=== PATIENT | male | born 1935 | race Two or more races ===

== ENCOUNTER 2020-08-17 02:58 | Inpatient (IN) | payer OTHER ==
[~2020-08-17] VITALS: Ht 167.6 cm; Wt 76.5 kg
[2020-08-17 06:55] LABS: Basophils # (auto) 0 10 ^3/uL (0-0.2); Basophils % (auto) 0.5 % (0.0-2.0); Calcium 8.1 mg/dL (8.5-10.1); Chloride 94 mmol/L (98-107); Eosinophils # (auto) 0 10 ^3/uL (0-0.8); Lymphocytes # (auto) 0.7 10 ^3/uL (0.4-5.4); Lymphocytes % (auto) 17.5 % (10.0-50.0); Mean Corpuscular Hemoglobin 32.2 pg (28.0-32.0); Mean Corpuscular Hgb Conc. 34.6 g/dL (32.0-36.0); Mean Corpuscular Volume 93.2 fL (80.0-100.0); Monocytes # (auto) 0.5 10 ^3/uL (0-1.3); Monocytes % (auto) 11.8 % (0.0-12.0); Neutrophils # (auto) 2.8 10 ^3/uL (1.6-8.6); Neutrophils % (auto) 70.2 % (37.0-80.0); Nucleated Red Blood Cells % 0.3 %; Platelet Count (auto) 108 10^3/uL (140-450); Potassium 3.2 mmol/L (3.5-5.1); Red Blood Cells 5.26 10^6/uL (4.5-5.90); Red Cell Distribution Width 13.9 % (11.8-14.3); Sodium 133 mmol/L (136-145)
[2020-08-17 07:00] LABS: INR 1.08 (0.9-1.15); Partial Thromboplastin Time 30.9 sec (23.0-31.2)
[2020-08-17 07:04] LABS: Alanine Aminotransferase 22 U/L (16-61); Albumin 3.2 g/dL (3.4-5.0); Alkaline Phosphatase 102 U/L (45-117); Anion Gap 8 (5-15); Aspartate Aminotransferase 37 U/L (15-37); BUN/Creatinine Ratio 15.4; Bilirubin, Total 1.3 mg/dL (0.2-1.0); Blood Urea Nitrogen 16 mg/dL (7-18); Carbon Dioxide 31 mmol/L (21-32); GFR African American 88 mL/min; GFR Non-African American 72 mL/min; Glucose 111 mg/dL (74-106); Magnesium 2.6 mg/dL (1.6-2.6); Total Protein 7.6 g/dL (6.4-8.2)
[2020-08-17] MEDS ORDERED: POTASSIUM EFFERVESENT TAB 25 MEQ PO ONE (09:30)
[2020-08-17] MEDS ORDERED: MORPHINE SULF INJ 2 MG/ML SYRINGE 1ML IV PRN (09:30)
[2020-08-17] MEDS ORDERED: REMDESIVIR PER PHARMACY 0 ML IV SCH (09:30)
[2020-08-17] MEDS ORDERED: NITROGLYCERIN 0.4 MG SL TAB SL PRN (09:30)
[2020-08-17] MEDS ORDERED: DEXTROSE (50%) 50ML SYRG IV PRN (09:30)
[2020-08-17] MEDS ORDERED: ALBUTEROL SULF 2.5 MG/0.5ML(0.5%) NEB SOLN NEB PRN (09:30)
[2020-08-17] MEDS ORDERED: LACTULOSE 20Gm/30ML SOLN PO PRN (09:30)
[2020-08-17] MEDS ORDERED: ACETAMINOPHEN 500 MG TAB PO PRN (09:30)
[2020-08-17] MEDS ORDERED: TAMS1CAP25 PO (09:53)
[2020-08-17] MEDS ORDERED: ALPR0.254 PO (09:53)
[2020-08-17] MEDS ORDERED: HYDR25TA4 PO (09:55)
[2020-08-17] MEDS ORDERED: METO-462 PO (09:55)
[2020-08-17] MEDS ORDERED: ESCI20TA51 PO (09:59)
[2020-08-17] MEDS ORDERED: TRAZ50TA2 PO (09:59)
[2020-08-17] MEDS: BUDESONIDE (INHALATION) 180 MCG IH IN SCH ×2 (10:00→22:00)
[2020-08-17] MEDS ORDERED: [UNRECOGNIZED DRUG - CODE] MT (10:02)
[2020-08-17] MEDS ORDERED: [UNRECOGNIZED DRUG - CODE] PO (10:02)
[2020-08-17] MEDS: CHOLECALCIFEROL (VITD3) 2,000 UNIT CAP PO SCH (10:50)
[2020-08-17] MEDS: ENOXAPARIN SOD 40 MG/0.4 ML SYRINGE SC SCH (10:50)
[2020-08-17] MEDS: levoFLOXacin 500MG 100 ML IV SCH (10:50)
[2020-08-17] MEDS: ASCORBIC ACID 1,000 MG TAB PO SCH (10:50)
[2020-08-17] MEDS: DexAMETHasone SOD PHOS 10MG/1ML VIAL INJ IV SCH (10:50)
[2020-08-17] MEDS: ZINC SULFATE 220mg CAP or TAB PO SCH (10:50)
[2020-08-17] MEDS: ACCU-CHEK COMFORT CURVE STRIP VI SCH (10:57)
[2020-08-17] MEDS ORDERED: IPRATROPIUM BROM 0.5 MG/2.5ML INH SOL NEB SCH (12:00)
[2020-08-17] MEDS ORDERED: ALBUTEROL SULF 2.5 MG/0.5ML(0.5%) NEB SOLN NEB SCH (12:00)
[2020-08-17] MEDS ORDERED: REMDESIVIR 200 MG in NS 210ml LOADING DOSE ADULT IV ONE (15:00)
[2020-08-17 23:35] VITALS: BP 154/74
[2020-08-18] MEDS: ACCU-CHEK COMFORT CURVE STRIP VI SCH ×7 (00:54→22:37)
[2020-08-18] MEDS: ENOXAPARIN SOD 40 MG/0.4 ML SYRINGE SC SCH ×3 (00:55→22:37)
[2020-08-18] MEDS: traZODone HCL 50 MG TAB PO SCH ×2 (00:55→22:39)
[2020-08-18] MEDS: ALBUTEROL SULF HFA 90MCG INH 200DOSE IN PRN ×3 (01:47→22:42)
[2020-08-18 03:04] LABS: Urine Blood Negative /uL (Negative); Urine Mucus FEW (None Seen); Urine Specific Gravity 1.024 (1.001-1.035); Urine WBC 1 /hpf (0 - 3)
[2020-08-18 03:05] LABS: Urine Bacteria FEW /hpf (None Seen); Urine Hyaline Cast MANY /lpf (0 - 2)
[2020-08-18 05:00] VITALS: BP 141/87
[2020-08-18 06:23] LABS: Basophils # (auto) 0 10 ^3/uL (0-0.2); Basophils % (auto) 0.1 % (0.0-2.0); Eosinophils # (auto) 0 10 ^3/uL (0-0.8); Hematocrit 45.1 % (41.0-53.0); Hemoglobin 15.3 g/dL (13.5-17.5); Lymphocytes # (auto) 0.3 10 ^3/uL (0.4-5.4); Lymphocytes % (auto) 9.9 % (10.0-50.0); Mean Corpuscular Hemoglobin 31.6 pg (28.0-32.0); Mean Corpuscular Volume 92.9 fL (80.0-100.0); Monocytes # (auto) 0.3 10 ^3/uL (0-1.3); Monocytes % (auto) 12.3 % (0.0-12.0); Neutrophils % (auto) 77.7 % (37.0-80.0); Nucleated Red Blood Cells % 0.2 %; Platelet Count (auto) 85 10^3/uL (140-450); Red Blood Cells 4.86 10^6/uL (4.5-5.90); Red Cell Distribution Width 13.8 % (11.8-14.3); White Blood Cell 2.6 10^3/uL (4.4-10.8)
[2020-08-18 06:40] LABS: Albumin 2.7 g/dL (3.4-5.0); Calcium 8.2 mg/dL (8.5-10.1); Potassium 3.3 mmol/L (3.5-5.1)
[2020-08-18 06:45] LABS: BUN/Creatinine Ratio 23.3; Bilirubin, Total 1.2 mg/dL (0.2-1.0); Total Protein 6.8 g/dL (6.4-8.2)
[2020-08-18] MEDS: BUDESONIDE (INHALATION) 180 MCG IH IN SCH ×2 (07:22→21:14)
[2020-08-18 08:00] VITALS: BP 129/62
[2020-08-18] MEDS: DexAMETHasone SOD PHOS 10MG/1ML VIAL INJ IV SCH (09:51)
[2020-08-18] MEDS: ARTIFICIAL SALIVA MT SCH (09:51)
[2020-08-18] MEDS: levoFLOXacin 500MG 100 ML IV SCH (09:51)
[2020-08-18] MEDS: ZINC SULFATE 220mg CAP or TAB PO SCH (09:53)
[2020-08-18] MEDS: ESCITALOPRAM OXALATE 20 MG PO SCH (09:53)
[2020-08-18] MEDS: TAMSULOSIN HYDROCHLORIDE 0.4 MG CAP PO SCH (09:53)
[2020-08-18] MEDS: ASCORBIC ACID 1,000 MG TAB PO SCH (09:54)
[2020-08-18] MEDS: CHOLECALCIFEROL (VITD3) 2,000 UNIT CAP PO SCH (09:54)
[2020-08-18] MEDS: METOPROLOL TARTRATE 50 MG TAB PO SCH (09:55)
[2020-08-18 12:00] VITALS: BP 99/63
[2020-08-18] MEDS ORDERED: POTASSIUM CHL 20 Meq TABLET PO ONE (14:00)
[2020-08-18] MEDS ORDERED: MAGNESIUM OXIDE 400 MG TAB PO ONE (14:00)
[2020-08-18] MEDS ORDERED: diphenhdrAMINE HCL 50 MG/1 ML VL IV PRN (14:00)
[2020-08-18] MEDS ORDERED: MAGNESIUM SULFATE 1GM/100ML 100 ML IV SCH (14:00)
[2020-08-18] MEDS ORDERED: DEXTROSE (50%) 50ML SYRG IV PRN (14:30)
[2020-08-18] MEDS ORDERED: REMDESIVIR 100 MG in SODIUM CHL 0.9% 250 ML IV SCH ×4 (15:00)
[2020-08-18] MEDS ORDERED: REMDESIVIR 200 MG in NS 210ml LOADING DOSE ADULT IV ONE (15:00)
[2020-08-18 16:00] VITALS: BP 110/44
[2020-08-18] MEDS: InsuLIN REG 1unit/0.01ml Soln (100units/ml) SC SCH ×2 (17:00→22:56)
[2020-08-18] MEDS: MAGNESIUM SULFATE 1GM/100ML 100 ML IV SCH ×3 (17:30→18:51)
[2020-08-18 21:17] VITALS: BP 121/66
[2020-08-18] MEDS: FAMOTIDINE (10MG/ML) 2ML VL IV SCH (22:38)
[2020-08-19] VITALS (10 sets, daily range): BP systolic 104–127; BP diastolic 54–74
[2020-08-19 05:22] LABS: Basophils # (auto) 0 10 ^3/uL (0-0.2); Basophils % (auto) 0.1 % (0.0-2.0); Eosinophils # (auto) 0 10 ^3/uL (0-0.8); Hematocrit 49.4 % (41.0-53.0); Hemoglobin 16.4 g/dL (13.5-17.5); Lymphocytes # (auto) 0.8 10 ^3/uL (0.4-5.4); Lymphocytes % (auto) 6.8 % (10.0-50.0); Mean Corpuscular Hemoglobin 31.4 pg (28.0-32.0); Mean Corpuscular Hgb Conc. 33.3 g/dL (32.0-36.0); Mean Corpuscular Volume 94.4 fL (80.0-100.0); Monocytes # (auto) 0.7 10 ^3/uL (0-1.3); Monocytes % (auto) 5.9 % (0.0-12.0); Neutrophils # (auto) 9.9 10 ^3/uL (1.6-8.6); Neutrophils % (auto) 87.2 % (37.0-80.0); Nucleated Red Blood Cells % 0.1 %; Platelet Count (auto) 112 10^3/uL (140-450); Red Blood Cells 5.23 10^6/uL (4.5-5.90); Red Cell Distribution Width 13.8 % (11.8-14.3); White Blood Cell 11.3 10^3/uL (4.4-10.8)
[2020-08-19 05:40] LABS: Albumin 2.8 g/dL (3.4-5.0); Calcium 8.5 mg/dL (8.5-10.1); Magnesium 2.8 mg/dL (1.6-2.6); Potassium 3.7 mmol/L (3.5-5.1)
[2020-08-19 05:49] LABS: BUN/Creatinine Ratio 20.8; Bilirubin, Total 0.9 mg/dL (0.2-1.0); CRP High Sensitivity 3.51 mg/dL (< 0.3); Phosphorus 2.1 mg/dL (2.5-4.90)
[2020-08-19] MEDS: BUDESONIDE (INHALATION) 180 MCG IH IN SCH ×2 (06:28→21:34)
[2020-08-19] MEDS: ALBUTEROL SULF HFA 90MCG INH 200DOSE IN PRN (06:28)
[2020-08-19] MEDS: ACCU-CHEK COMFORT CURVE STRIP VI SCH ×8 (06:57→22:25)
[2020-08-19] MEDS: InsuLIN REG 1unit/0.01ml Soln (100units/ml) SC SCH ×4 (06:59→22:52)
[2020-08-19] MEDS: levoFLOXacin 500MG 100 ML IV SCH (09:55)
[2020-08-19] MEDS: ENOXAPARIN SOD 40 MG/0.4 ML SYRINGE SC SCH ×2 (09:55→22:25)
[2020-08-19] MEDS: TAMSULOSIN HYDROCHLORIDE 0.4 MG CAP PO SCH (09:56)
[2020-08-19] MEDS: METOPROLOL TARTRATE 50 MG TAB PO SCH (09:56)
[2020-08-19] MEDS: ZINC SULFATE 220mg CAP or TAB PO SCH (09:56)
[2020-08-19] MEDS: ASCORBIC ACID 1,000 MG TAB PO SCH (09:57)
[2020-08-19] MEDS: DexAMETHasone SOD PHOS 10MG/1ML VIAL INJ IV SCH (09:57)
[2020-08-19] MEDS: FAMOTIDINE (10MG/ML) 2ML VL IV SCH ×2 (09:57→22:24)
[2020-08-19] MEDS: CHOLECALCIFEROL (VITD3) 2,000 UNIT CAP PO SCH (09:57)
[2020-08-19] MEDS ORDERED: MAGNESIUM OXIDE 400 MG TAB PO SCH (10:00)
[2020-08-19] MEDS: ESCITALOPRAM OXALATE 20 MG PO SCH (10:00)
[2020-08-19] MEDS: ARTIFICIAL SALIVA MT SCH (10:00)
[2020-08-19] MEDS ORDERED: FUROSEMIDE 20 MG/2 ML VIAL IV ONE (11:15)
[2020-08-19] MEDS ORDERED: POTASSIUM PHOSPHATE 26.4 MEQ in SODIUM CHL 0.9% 100 ML IV ONE (11:15)
[2020-08-19] MEDS: REMDESIVIR 100 MG in SODIUM CHL 0.9% 250 ML IV SCH (16:46)
[2020-08-19] MEDS: traZODone HCL 50 MG TAB PO SCH (22:24)
[2020-08-19] MEDS: ALPRAZolam 0.25 MG TAB PO PRN (22:27)
[2020-08-20] MEDS: ALBUTEROL SULF HFA 90MCG INH 200DOSE IN PRN ×3 (00:12→20:23)
[2020-08-20 05:00] VITALS: BP 126/73
[2020-08-20] MEDS: ACCU-CHEK COMFORT CURVE STRIP VI SCH ×8 (06:17→22:16)
[2020-08-20] MEDS: InsuLIN REG 1unit/0.01ml Soln (100units/ml) SC SCH ×4 (07:00→22:16)
[2020-08-20] MEDS: BUDESONIDE (INHALATION) 180 MCG IH IN SCH ×2 (08:05→20:23)
[2020-08-20 09:00] VITALS: BP 140/67
[2020-08-20] MEDS: FUROSEMIDE 20 MG/2 ML VIAL IV SCH (09:28)
[2020-08-20] MEDS: levoFLOXacin 500MG 100 ML IV SCH (09:28)
[2020-08-20] MEDS: DexAMETHasone SOD PHOS 10MG/1ML VIAL INJ IV SCH (09:28)
[2020-08-20] MEDS: FAMOTIDINE (10MG/ML) 2ML VL IV SCH ×2 (09:28→22:12)
[2020-08-20] MEDS: CHOLECALCIFEROL (VITD3) 2,000 UNIT CAP PO SCH (09:29)
[2020-08-20] MEDS: ZINC SULFATE 220mg CAP or TAB PO SCH (09:29)
[2020-08-20] MEDS: METOPROLOL TARTRATE 50 MG TAB PO SCH (09:29)
[2020-08-20] MEDS: ASCORBIC ACID 1,000 MG TAB PO SCH (09:30)
[2020-08-20] MEDS: TAMSULOSIN HYDROCHLORIDE 0.4 MG CAP PO SCH (09:30)
[2020-08-20] MEDS: ESCITALOPRAM OXALATE 20 MG PO SCH (10:00)
[2020-08-20] MEDS: ARTIFICIAL SALIVA MT SCH (10:00)
[2020-08-20] MEDS: ENOXAPARIN SOD 40 MG/0.4 ML SYRINGE SC SCH ×2 (11:37→22:12)
[2020-08-20] MEDS: ALPRAZolam 0.25 MG TAB PO PRN (11:40)
[2020-08-20 15:49] VITALS: BP 122/59
[2020-08-20] MEDS: REMDESIVIR 100 MG in SODIUM CHL 0.9% 250 ML IV SCH (16:04)
[2020-08-20 17:00] VITALS: BP 125/69
[2020-08-20 22:00] VITALS: BP 139/77
[2020-08-20] MEDS: traZODone HCL 50 MG TAB PO SCH (22:12)
[2020-08-21 05:00] VITALS: BP 130/69
[2020-08-21] MEDS: BUDESONIDE (INHALATION) 180 MCG IH IN SCH ×2 (06:46→21:19)
[2020-08-21] MEDS: ALBUTEROL SULF HFA 90MCG INH 200DOSE IN PRN ×2 (06:46→21:19)
[2020-08-21] MEDS: InsuLIN REG 1unit/0.01ml Soln (100units/ml) SC SCH ×4 (07:00→22:00)
[2020-08-21] MEDS: ACCU-CHEK COMFORT CURVE STRIP VI SCH ×7 (07:01→22:00)
[2020-08-21] MEDS: FUROSEMIDE 20 MG/2 ML VIAL IV SCH (10:00)
[2020-08-21] MEDS: ARTIFICIAL SALIVA MT SCH (10:00)
[2020-08-21] MEDS: CHOLECALCIFEROL (VITD3) 2,000 UNIT CAP PO SCH (10:45)
[2020-08-21] MEDS: ENOXAPARIN SOD 40 MG/0.4 ML SYRINGE SC SCH ×2 (10:45→21:32)
[2020-08-21] MEDS: CITALOPRAM HYDROBR 20 MG TAB PO SCH (10:45)
[2020-08-21] MEDS: levoFLOXacin 500MG 100 ML IV SCH (10:45)
[2020-08-21] MEDS: ASCORBIC ACID 1,000 MG TAB PO SCH (10:45)
[2020-08-21] MEDS: FAMOTIDINE (10MG/ML) 2ML VL IV SCH (10:45)
[2020-08-21] MEDS: METOPROLOL TARTRATE 50 MG TAB PO SCH (10:45)
[2020-08-21] MEDS: DexAMETHasone SOD PHOS 10MG/1ML VIAL INJ IV SCH (10:45)
[2020-08-21] MEDS: TAMSULOSIN HYDROCHLORIDE 0.4 MG CAP PO SCH (10:45)
[2020-08-21] MEDS: MORPHINE SULF INJ 2 MG/ML SYRINGE 1ML IV PRN ×2 (10:50→15:17)
[2020-08-21] MEDS: ZINC SULFATE 220mg CAP or TAB PO SCH (16:15)
[2020-08-21] MEDS: traMADol HCL 50 MG TAB PO PRN (20:39)
[2020-08-21] MEDS: traZODone HCL 50 MG TAB PO SCH (21:31)
[2020-08-21] MEDS: REMDESIVIR 100 MG in SODIUM CHL 0.9% 250 ML IV SCH (21:33)
[2020-08-21 22:00] VITALS: BP 146/70
[2020-08-22] MEDS: FAMOTIDINE (10MG/ML) 2ML VL IV SCH ×3 (01:57→20:55)
[2020-08-22] MEDS: ACCU-CHEK COMFORT CURVE STRIP VI SCH ×9 (01:58→21:13)
[2020-08-22 05:00] VITALS: BP 143/79
[2020-08-22] MEDS: InsuLIN REG 1unit/0.01ml Soln (100units/ml) SC SCH ×4 (06:20→21:27)
[2020-08-22 07:31] LABS: Basophils # (auto) 0 10 ^3/uL (0-0.2); Basophils % (auto) 0.2 % (0.0-2.0); Eosinophils # (auto) 0 10 ^3/uL (0-0.8); Hematocrit 47.6 % (41.0-53.0); Lymphocytes # (auto) 0.7 10 ^3/uL (0.4-5.4); Lymphocytes % (auto) 11.9 % (10.0-50.0); Mean Corpuscular Hemoglobin 31.8 pg (28.0-32.0); Mean Corpuscular Hgb Conc. 33.6 g/dL (32.0-36.0); Mean Corpuscular Volume 94.6 fL (80.0-100.0); Monocytes # (auto) 0.7 10 ^3/uL (0-1.3); Monocytes % (auto) 10.9 % (0.0-12.0); Neutrophils # (auto) 4.6 10 ^3/uL (1.6-8.6); Nucleated Red Blood Cells % 0.1 %; Platelet Count (auto) 169 10^3/uL (140-450); Red Blood Cells 5.03 10^6/uL (4.5-5.90); Red Cell Distribution Width 13.7 % (11.8-14.3)
[2020-08-22 07:34] LABS: Albumin 2.8 g/dL (3.4-5.0); Magnesium 2.2 mg/dL (1.6-2.6); Potassium 3.5 mmol/L (3.5-5.1)
[2020-08-22 07:35] LABS: BUN/Creatinine Ratio 18.9
[2020-08-22 07:39] LABS: Bilirubin, Total 1.4 mg/dL (0.2-1.0); Total Protein 6.6 g/dL (6.4-8.2)
[2020-08-22] MEDS: BUDESONIDE (INHALATION) 180 MCG IH IN SCH ×2 (07:56→21:33)
[2020-08-22] MEDS: ALBUTEROL SULF HFA 90MCG INH 200DOSE IN PRN ×2 (07:56→21:33)
[2020-08-22] MEDS: ARTIFICIAL SALIVA MT SCH (10:00)
[2020-08-22] MEDS: DexAMETHasone SOD PHOS 10MG/1ML VIAL INJ IV SCH (11:26)
[2020-08-22] MEDS: FUROSEMIDE 20 MG/2 ML VIAL IV SCH (11:26)
[2020-08-22] MEDS: ZINC SULFATE 220mg CAP or TAB PO SCH (11:27)
[2020-08-22] MEDS: CITALOPRAM HYDROBR 20 MG TAB PO SCH (11:28)
[2020-08-22] MEDS: TAMSULOSIN HYDROCHLORIDE 0.4 MG CAP PO SCH (11:28)
[2020-08-22] MEDS: METOPROLOL TARTRATE 50 MG TAB PO SCH (11:28)
[2020-08-22] MEDS: ENOXAPARIN SOD 40 MG/0.4 ML SYRINGE SC SCH ×2 (11:30→20:55)
[2020-08-22] MEDS: ASCORBIC ACID 1,000 MG TAB PO SCH (11:30)
[2020-08-22] MEDS: CHOLECALCIFEROL (VITD3) 2,000 UNIT CAP PO SCH (11:30)
[2020-08-22] MEDS: levoFLOXacin 500MG 100 ML IV SCH (11:33)
[2020-08-22] MEDS: traMADol HCL 50 MG TAB PO PRN (13:28)
[2020-08-22] MEDS ORDERED: POTASSIUM CHL 20 Meq TABLET PO ONE (15:45)
[2020-08-22] MEDS: ONDANSETRON HCL 4 MG/2 ML VIAL IV PRN (18:08)
[2020-08-22] MEDS: MORPHINE SULF INJ 2 MG/ML SYRINGE 1ML IV PRN (18:08)
[2020-08-22] MEDS: REMDESIVIR 100 MG in SODIUM CHL 0.9% 250 ML IV SCH (20:56)
[2020-08-22] MEDS: traZODone HCL 50 MG TAB PO SCH (21:07)
[2020-08-22 22:00] VITALS: BP 128/69
[2020-08-23 05:00] VITALS: BP 127/69
[2020-08-23] MEDS: InsuLIN REG 1unit/0.01ml Soln (100units/ml) SC SCH ×4 (06:24→21:28)
[2020-08-23] MEDS: ACCU-CHEK COMFORT CURVE STRIP VI SCH ×8 (06:24→21:20)
[2020-08-23 08:00] VITALS: BP 126/65
[2020-08-23] MEDS: BUDESONIDE (INHALATION) 180 MCG IH IN SCH ×2 (10:00→22:58)
[2020-08-23] MEDS: ARTIFICIAL SALIVA MT SCH (10:00)
[2020-08-23] MEDS: FAMOTIDINE (10MG/ML) 2ML VL IV SCH ×2 (10:38→21:19)
[2020-08-23] MEDS: FUROSEMIDE 20 MG/2 ML VIAL IV SCH (10:39)
[2020-08-23] MEDS: levoFLOXacin 500MG 100 ML IV SCH (10:39)
[2020-08-23] MEDS: DexAMETHasone SOD PHOS 10MG/1ML VIAL INJ IV SCH (10:39)
[2020-08-23] MEDS: ZINC SULFATE 220mg CAP or TAB PO SCH (10:40)
[2020-08-23] MEDS: CITALOPRAM HYDROBR 20 MG TAB PO SCH (10:41)
[2020-08-23] MEDS: TAMSULOSIN HYDROCHLORIDE 0.4 MG CAP PO SCH (10:41)
[2020-08-23] MEDS: METOPROLOL TARTRATE 50 MG TAB PO SCH (10:42)
[2020-08-23] MEDS: ASCORBIC ACID 1,000 MG TAB PO SCH (10:42)
[2020-08-23] MEDS: CHOLECALCIFEROL (VITD3) 2,000 UNIT CAP PO SCH (10:43)
[2020-08-23] MEDS: ENOXAPARIN SOD 40 MG/0.4 ML SYRINGE SC SCH ×2 (10:44→21:19)
[2020-08-23 12:00] VITALS: BP 133/66
[2020-08-23] MEDS: ALBUTEROL SULF HFA 90MCG INH 200DOSE IN PRN ×2 (14:09→22:57)
[2020-08-23] MEDS: MORPHINE SULF INJ 2 MG/ML SYRINGE 1ML IV PRN (15:15)
[2020-08-23] MEDS: ONDANSETRON HCL 4 MG/2 ML VIAL IV PRN (15:15)
[2020-08-23 17:00] VITALS: BP 117/69
[2020-08-23] MEDS: traZODone HCL 50 MG TAB PO SCH (21:20)
[2020-08-23 22:00] VITALS: BP 150/63
[2020-08-24 05:00] VITALS: BP 123/70
[2020-08-24] MEDS: InsuLIN REG 1unit/0.01ml Soln (100units/ml) SC SCH ×4 (07:00→22:00)
[2020-08-24] MEDS: ACCU-CHEK COMFORT CURVE STRIP VI SCH ×8 (07:01→22:34)
[2020-08-24] MEDS: BUDESONIDE (INHALATION) 180 MCG IH IN SCH ×2 (07:31→19:43)
[2020-08-24] MEDS: ALBUTEROL SULF HFA 90MCG INH 200DOSE IN PRN ×2 (07:31→19:43)
[2020-08-24 09:00] VITALS: BP 124/68
[2020-08-24] MEDS: ARTIFICIAL SALIVA MT SCH (10:00)
[2020-08-24] MEDS: levoFLOXacin 500MG 100 ML IV SCH (10:46)
[2020-08-24] MEDS: DexAMETHasone SOD PHOS 10MG/1ML VIAL INJ IV SCH (10:47)
[2020-08-24] MEDS: ENOXAPARIN SOD 40 MG/0.4 ML SYRINGE SC SCH ×2 (10:47→22:11)
[2020-08-24] MEDS: CITALOPRAM HYDROBR 20 MG TAB PO SCH (10:47)
[2020-08-24] MEDS: ASCORBIC ACID 1,000 MG TAB PO SCH (10:48)
[2020-08-24] MEDS: ZINC SULFATE 220mg CAP or TAB PO SCH (10:48)
[2020-08-24] MEDS: TAMSULOSIN HYDROCHLORIDE 0.4 MG CAP PO SCH (10:48)
[2020-08-24] MEDS: METOPROLOL TARTRATE 50 MG TAB PO SCH (10:48)
[2020-08-24] MEDS: FAMOTIDINE (10MG/ML) 2ML VL IV SCH ×2 (10:49→22:11)
[2020-08-24] MEDS: FUROSEMIDE 20 MG/2 ML VIAL IV SCH (10:49)
[2020-08-24] MEDS: CHOLECALCIFEROL (VITD3) 2,000 UNIT CAP PO SCH (10:50)
[2020-08-24 12:50] VITALS: BP 138/79
[2020-08-24 16:40] VITALS: BP 123/68
[2020-08-24 22:00] VITALS: BP 130/66
[2020-08-24] MEDS: traZODone HCL 50 MG TAB PO SCH (22:11)
[2020-08-25 05:00] VITALS: BP 118/63
[2020-08-25] MEDS: ACCU-CHEK COMFORT CURVE STRIP VI SCH ×8 (06:29→20:31)
[2020-08-25] MEDS: InsuLIN REG 1unit/0.01ml Soln (100units/ml) SC SCH ×4 (06:29→21:16)
[2020-08-25 08:51] VITALS: BP 112/54
[2020-08-25 09:09] LABS: Basophils # (auto) 0.2 10 ^3/uL (0-0.2); Basophils % (auto) 3.3 % (0.0-2.0); Eosinophils # (auto) 0 10 ^3/uL (0-0.8); Eosinophils % (auto) 0.6 % (0.0-7.0); Hematocrit 46.7 % (41.0-53.0); Hemoglobin 15.6 g/dL (13.5-17.5); Lymphocytes # (auto) 0.6 10 ^3/uL (0.4-5.4); Lymphocytes % (auto) 12.8 % (10.0-50.0); Mean Corpuscular Hemoglobin 31.4 pg (28.0-32.0); Mean Corpuscular Hgb Conc. 33.3 g/dL (32.0-36.0); Mean Corpuscular Volume 94.3 fL (80.0-100.0); Monocytes # (auto) 0.6 10 ^3/uL (0-1.3); Monocytes % (auto) 12.1 % (0.0-12.0); Neutrophils # (auto) 3.6 10 ^3/uL (1.6-8.6); Neutrophils % (auto) 71.2 % (37.0-80.0); Nucleated Red Blood Cells % 0.1 %; Platelet Count (auto) 206 10^3/uL (140-450); Red Blood Cells 4.96 10^6/uL (4.5-5.90); Red Cell Distribution Width 13.7 % (11.8-14.3)
[2020-08-25 09:29] LABS: Albumin 2.5 g/dL (3.4-5.0); Calcium 8.5 mg/dL (8.5-10.1); Magnesium 2.5 mg/dL (1.6-2.6); Potassium 3.3 mmol/L (3.5-5.1)
[2020-08-25 09:34] LABS: BUN/Creatinine Ratio 33.7; Bilirubin, Total 1.8 mg/dL (0.2-1.0); Total Protein 6.2 g/dL (6.4-8.2)
[2020-08-25] MEDS: ENOXAPARIN SOD 40 MG/0.4 ML SYRINGE SC SCH ×2 (09:49→20:30)
[2020-08-25] MEDS: ZINC SULFATE 220mg CAP or TAB PO SCH (09:49)
[2020-08-25] MEDS: CITALOPRAM HYDROBR 20 MG TAB PO SCH (09:49)
[2020-08-25] MEDS: CHOLECALCIFEROL (VITD3) 2,000 UNIT CAP PO SCH (09:49)
[2020-08-25] MEDS: ASCORBIC ACID 1,000 MG TAB PO SCH (09:49)
[2020-08-25] MEDS: TAMSULOSIN HYDROCHLORIDE 0.4 MG CAP PO SCH (09:50)
[2020-08-25] MEDS: FAMOTIDINE (10MG/ML) 2ML VL IV SCH ×2 (09:50→20:31)
[2020-08-25] MEDS: DexAMETHasone SOD PHOS 10MG/1ML VIAL INJ IV SCH (09:50)
[2020-08-25] MEDS: FUROSEMIDE 20 MG/2 ML VIAL IV SCH (10:00)
[2020-08-25] MEDS: METOPROLOL TARTRATE 50 MG TAB PO SCH (10:00)
[2020-08-25] MEDS: ARTIFICIAL SALIVA MT SCH (10:00)
[2020-08-25] MEDS: BUDESONIDE (INHALATION) 180 MCG IH IN SCH ×2 (10:00→22:28)
[2020-08-25] MEDS: ALBUTEROL SULF HFA 90MCG INH 200DOSE IN PRN ×2 (10:41→22:28)
[2020-08-25] MEDS ORDERED: POTASSIUM CHL 20 Meq TABLET PO ONE (12:45)
[2020-08-25 12:48] VITALS: BP 137/62
[2020-08-25 17:11] VITALS: BP 118/68
[2020-08-25] MEDS: traZODone HCL 50 MG TAB PO SCH (20:30)
[2020-08-25] MEDS: traMADol HCL 50 MG TAB PO PRN (20:30)
[2020-08-25 22:26] VITALS: BP 125/67
[2020-08-26 05:51] VITALS: BP 124/65
[2020-08-26] MEDS: ACCU-CHEK COMFORT CURVE STRIP VI SCH ×8 (06:46→22:00)
[2020-08-26] MEDS: InsuLIN REG 1unit/0.01ml Soln (100units/ml) SC SCH ×4 (06:47→22:43)
[2020-08-26 09:00] VITALS: BP 120/77
[2020-08-26] MEDS: FUROSEMIDE 20 MG/2 ML VIAL IV SCH (09:36)
[2020-08-26] MEDS: FAMOTIDINE (10MG/ML) 2ML VL IV SCH ×2 (09:36→22:41)
[2020-08-26] MEDS: DexAMETHasone SOD PHOS 10MG/1ML VIAL INJ IV SCH (09:36)
[2020-08-26] MEDS: TAMSULOSIN HYDROCHLORIDE 0.4 MG CAP PO SCH (09:37)
[2020-08-26] MEDS: CITALOPRAM HYDROBR 20 MG TAB PO SCH (09:37)
[2020-08-26] MEDS: ZINC SULFATE 220mg CAP or TAB PO SCH (09:37)
[2020-08-26] MEDS: ARTIFICIAL SALIVA MT SCH (09:37)
[2020-08-26] MEDS: METOPROLOL TARTRATE 50 MG TAB PO SCH (09:38)
[2020-08-26] MEDS: CHOLECALCIFEROL (VITD3) 2,000 UNIT CAP PO SCH (09:38)
[2020-08-26] MEDS: ASCORBIC ACID 1,000 MG TAB PO SCH (09:38)
[2020-08-26] MEDS: BUDESONIDE (INHALATION) 180 MCG IH IN SCH ×2 (10:00→20:34)
[2020-08-26] MEDS: ENOXAPARIN SOD 40 MG/0.4 ML SYRINGE SC SCH ×2 (10:40→22:44)
[2020-08-26 13:03] VITALS: BP 135/73
[2020-08-26 17:07] VITALS: BP 124/76
[2020-08-26] MEDS: ALBUTEROL SULF HFA 90MCG INH 200DOSE IN PRN (20:34)
[2020-08-26 22:00] VITALS: BP 125/63
[2020-08-26] MEDS: traZODone HCL 50 MG TAB PO SCH (22:41)
[2020-08-27] VITALS (7 sets, daily range): BP systolic 123–136; BP diastolic 62–75
[2020-08-27] MEDS: InsuLIN REG 1unit/0.01ml Soln (100units/ml) SC SCH ×4 (06:39→21:41)
[2020-08-27] MEDS: ACCU-CHEK COMFORT CURVE STRIP VI SCH ×8 (06:39→21:36)
[2020-08-27] MEDS: BUDESONIDE (INHALATION) 180 MCG IH IN SCH ×2 (06:55→19:05)
[2020-08-27] MEDS: ALBUTEROL SULF HFA 90MCG INH 200DOSE IN PRN (06:55)
[2020-08-27] MEDS: ARTIFICIAL SALIVA MT SCH (10:00)
[2020-08-27] MEDS: FAMOTIDINE (10MG/ML) 2ML VL IV SCH ×2 (10:15→21:35)
[2020-08-27] MEDS: FUROSEMIDE 20 MG/2 ML VIAL IV SCH (10:15)
[2020-08-27] MEDS: DexAMETHasone SOD PHOS 10MG/1ML VIAL INJ IV SCH (10:15)
[2020-08-27] MEDS: ZINC SULFATE 220mg CAP or TAB PO SCH (10:16)
[2020-08-27] MEDS: TAMSULOSIN HYDROCHLORIDE 0.4 MG CAP PO SCH (10:16)
[2020-08-27] MEDS: CITALOPRAM HYDROBR 20 MG TAB PO SCH (10:16)
[2020-08-27] MEDS: ASCORBIC ACID 1,000 MG TAB PO SCH (10:17)
[2020-08-27] MEDS: METOPROLOL TARTRATE 50 MG TAB PO SCH (10:17)
[2020-08-27] MEDS: CHOLECALCIFEROL (VITD3) 2,000 UNIT CAP PO SCH (10:17)
[2020-08-27] MEDS: ENOXAPARIN SOD 40 MG/0.4 ML SYRINGE SC SCH ×2 (10:17→21:36)
[2020-08-27] MEDS: traZODone HCL 50 MG TAB PO SCH (21:35)
[2020-08-28] MEDS: ALBUTEROL SULF HFA 90MCG INH 200DOSE IN PRN ×2 (02:16→20:40)
[2020-08-28 05:00] VITALS: BP 129/68
[2020-08-28] MEDS: InsuLIN REG 1unit/0.01ml Soln (100units/ml) SC SCH ×4 (05:56→21:31)
[2020-08-28] MEDS: ACCU-CHEK COMFORT CURVE STRIP VI SCH ×8 (05:57→21:31)
[2020-08-28 06:48] LABS: Basophils # (auto) 0 10 ^3/uL (0-0.2); Basophils % (auto) 0.1 % (0.0-2.0); Eosinophils # (auto) 0 10 ^3/uL (0-0.8); Hematocrit 44.6 % (41.0-53.0); Lymphocytes # (auto) 0.5 10 ^3/uL (0.4-5.4); Lymphocytes % (auto) 5.9 % (10.0-50.0); Mean Corpuscular Hemoglobin 32.1 pg (28.0-32.0); Mean Corpuscular Hgb Conc. 33.6 g/dL (32.0-36.0); Mean Corpuscular Volume 95.4 fL (80.0-100.0); Monocytes # (auto) 0.6 10 ^3/uL (0-1.3); Monocytes % (auto) 6.4 % (0.0-12.0); Neutrophils # (auto) 7.6 10 ^3/uL (1.6-8.6); Neutrophils % (auto) 87.6 % (37.0-80.0); Platelet Count (auto) 163 10^3/uL (140-450); Red Blood Cells 4.67 10^6/uL (4.5-5.90); Red Cell Distribution Width 13.7 % (11.8-14.3); White Blood Cell 8.7 10^3/uL (4.4-10.8)
[2020-08-28 07:20] LABS: Potassium 3.7 mmol/L (3.5-5.1)
[2020-08-28 07:26] LABS: Albumin 2.3 g/dL (3.4-5.0); BUN/Creatinine Ratio 36.6; Bilirubin, Total 1.6 mg/dL (0.2-1.0); Calcium 8.6 mg/dL (8.5-10.1); Total Protein 5.8 g/dL (6.4-8.2)
[2020-08-28] MEDS: METOPROLOL TARTRATE 50 MG TAB PO SCH (10:00)
[2020-08-28] MEDS: ARTIFICIAL SALIVA MT SCH (10:00)
[2020-08-28] MEDS: BUDESONIDE (INHALATION) 180 MCG IH IN SCH ×2 (10:00→22:00)
[2020-08-28] MEDS: DexAMETHasone SOD PHOS 10MG/1ML VIAL INJ IV SCH (10:40)
[2020-08-28] MEDS: FUROSEMIDE 20 MG/2 ML VIAL IV SCH (10:42)
[2020-08-28] MEDS: FAMOTIDINE (10MG/ML) 2ML VL IV SCH ×2 (10:42→21:26)
[2020-08-28] MEDS: CITALOPRAM HYDROBR 20 MG TAB PO SCH (10:43)
[2020-08-28] MEDS: TAMSULOSIN HYDROCHLORIDE 0.4 MG CAP PO SCH (10:43)
[2020-08-28] MEDS: ZINC SULFATE 220mg CAP or TAB PO SCH (10:43)
[2020-08-28] MEDS: CHOLECALCIFEROL (VITD3) 2,000 UNIT CAP PO SCH (10:45)
[2020-08-28] MEDS: ASCORBIC ACID 1,000 MG TAB PO SCH (10:45)
[2020-08-28] MEDS: ENOXAPARIN SOD 40 MG/0.4 ML SYRINGE SC SCH ×2 (10:46→21:28)
[2020-08-28 13:00] VITALS: BP 118/68
[2020-08-28 17:00] VITALS: BP 110/66
[2020-08-28] MEDS: traMADol HCL 50 MG TAB PO PRN (20:12)
[2020-08-28] MEDS: traZODone HCL 50 MG TAB PO SCH (21:27)
[2020-08-28 22:59] VITALS: BP 112/70
[2020-08-29 05:09] VITALS: BP 130/64
[2020-08-29] MEDS: ACCU-CHEK COMFORT CURVE STRIP VI SCH ×8 (06:12→21:33)
[2020-08-29] MEDS: InsuLIN REG 1unit/0.01ml Soln (100units/ml) SC SCH ×4 (06:12→21:40)
[2020-08-29 08:23] VITALS: BP 126/69
[2020-08-29 09:00] VITALS: BP 126/69
[2020-08-29] MEDS: DexAMETHasone SOD PHOS 10MG/1ML VIAL INJ IV SCH (09:43)
[2020-08-29] MEDS: FUROSEMIDE 20 MG/2 ML VIAL IV SCH (09:44)
[2020-08-29] MEDS: FAMOTIDINE (10MG/ML) 2ML VL IV SCH ×2 (09:44→21:29)
[2020-08-29] MEDS: ARTIFICIAL SALIVA MT SCH (09:44)
[2020-08-29] MEDS: TAMSULOSIN HYDROCHLORIDE 0.4 MG CAP PO SCH (09:45)
[2020-08-29] MEDS: ZINC SULFATE 220mg CAP or TAB PO SCH (09:46)
[2020-08-29] MEDS: CITALOPRAM HYDROBR 20 MG TAB PO SCH (09:46)
[2020-08-29] MEDS: METOPROLOL SUCCINATE XL 50 MG TAB PO SCH (09:47)
[2020-08-29] MEDS: ASCORBIC ACID 1,000 MG TAB PO SCH (09:49)
[2020-08-29] MEDS: CHOLECALCIFEROL (VITD3) 2,000 UNIT CAP PO SCH (09:49)
[2020-08-29] MEDS: ENOXAPARIN SOD 40 MG/0.4 ML SYRINGE SC SCH ×2 (09:49→21:30)
[2020-08-29] MEDS: BUDESONIDE (INHALATION) 180 MCG IH IN SCH ×3 (10:00→23:35)
[2020-08-29] MEDS: traZODone HCL 50 MG TAB PO SCH (21:29)
[2020-08-30] MEDS: ALBUTEROL SULF HFA 90MCG INH 200DOSE IN PRN ×3 (01:33→19:42)
[2020-08-30] MEDS: ACCU-CHEK COMFORT CURVE STRIP VI SCH ×8 (06:31→22:22)
[2020-08-30] MEDS: InsuLIN REG 1unit/0.01ml Soln (100units/ml) SC SCH ×4 (06:31→22:27)
[2020-08-30] MEDS: BUDESONIDE (INHALATION) 180 MCG IH IN SCH ×2 (07:31→19:10)
[2020-08-30 09:00] VITALS: BP 135/60
[2020-08-30] MEDS: TAMSULOSIN HYDROCHLORIDE 0.4 MG CAP PO SCH (09:16)
[2020-08-30] MEDS: CITALOPRAM HYDROBR 20 MG TAB PO SCH (09:16)
[2020-08-30] MEDS: METOPROLOL SUCCINATE XL 50 MG TAB PO SCH (09:16)
[2020-08-30] MEDS: DexAMETHasone SOD PHOS 10MG/1ML VIAL INJ IV SCH (09:16)
[2020-08-30] MEDS: CHOLECALCIFEROL (VITD3) 2,000 UNIT CAP PO SCH (09:17)
[2020-08-30] MEDS: ASCORBIC ACID 1,000 MG TAB PO SCH (09:17)
[2020-08-30] MEDS: ENOXAPARIN SOD 40 MG/0.4 ML SYRINGE SC SCH ×2 (09:17→22:20)
[2020-08-30] MEDS: ARTIFICIAL SALIVA MT SCH (09:18)
[2020-08-30] MEDS: FAMOTIDINE (10MG/ML) 2ML VL IV SCH ×2 (09:18→22:19)
[2020-08-30] MEDS: FUROSEMIDE 20 MG/2 ML VIAL IV SCH (09:18)
[2020-08-30] MEDS: ZINC SULFATE 220mg CAP or TAB PO SCH (09:18)
[2020-08-30 13:00] VITALS: BP 114/72
[2020-08-30 16:00] VITALS: BP 131/65
[2020-08-30 20:00] VITALS: BP 116/61
[2020-08-30] MEDS: traZODone HCL 50 MG TAB PO SCH (22:19)
[2020-08-31] VITALS: BP 116/61
[2020-08-31] MEDS: ACCU-CHEK COMFORT CURVE STRIP VI SCH ×8 (06:42→22:12)
[2020-08-31] MEDS: InsuLIN REG 1unit/0.01ml Soln (100units/ml) SC SCH ×4 (06:42→22:15)
[2020-08-31 06:55] LABS: Basophils # (auto) 0 10 ^3/uL (0-0.2); Basophils % (auto) 0.2 % (0.0-2.0); Eosinophils # (auto) 0 10 ^3/uL (0-0.8); Eosinophils % (auto) 0.1 % (0.0-7.0); Hematocrit 43.4 % (41.0-53.0); Hemoglobin 14.8 g/dL (13.5-17.5); Lymphocytes # (auto) 0.6 10 ^3/uL (0.4-5.4); Lymphocytes % (auto) 6.7 % (10.0-50.0); Mean Corpuscular Hemoglobin 32.2 pg (28.0-32.0); Mean Corpuscular Hgb Conc. 34.1 g/dL (32.0-36.0); Mean Corpuscular Volume 94.5 fL (80.0-100.0); Monocytes # (auto) 0.8 10 ^3/uL (0-1.3); Monocytes % (auto) 8.9 % (0.0-12.0); Neutrophils # (auto) 7.5 10 ^3/uL (1.6-8.6); Neutrophils % (auto) 84.1 % (37.0-80.0); Nucleated Red Blood Cells % 0.1 %; Platelet Count (auto) 139 10^3/uL (140-450); Red Blood Cells 4.59 10^6/uL (4.5-5.90); Red Cell Distribution Width 13.7 % (11.8-14.3)
[2020-08-31 07:12] LABS: Potassium 4.1 mmol/L (3.5-5.1)
[2020-08-31 07:45] LABS: Albumin 2.2 g/dL (3.4-5.0); Bilirubin, Total 1.3 mg/dL (0.2-1.0); Calcium 8.3 mg/dL (8.5-10.1); Total Protein 5.7 g/dL (6.4-8.2)
[2020-08-31 08:00] VITALS: BP 128/56
[2020-08-31] MEDS: DexAMETHasone SOD PHOS 10MG/1ML VIAL INJ IV SCH (09:20)
[2020-08-31] MEDS: TAMSULOSIN HYDROCHLORIDE 0.4 MG CAP PO SCH (09:21)
[2020-08-31] MEDS: ZINC SULFATE 220mg CAP or TAB PO SCH (09:21)
[2020-08-31] MEDS: ENOXAPARIN SOD 40 MG/0.4 ML SYRINGE SC SCH ×2 (09:21→22:12)
[2020-08-31] MEDS: CITALOPRAM HYDROBR 20 MG TAB PO SCH (09:21)
[2020-08-31] MEDS: METOPROLOL SUCCINATE XL 50 MG TAB PO SCH (09:21)
[2020-08-31] MEDS: ASCORBIC ACID 1,000 MG TAB PO SCH (09:22)
[2020-08-31] MEDS: CHOLECALCIFEROL (VITD3) 2,000 UNIT CAP PO SCH (09:22)
[2020-08-31] MEDS: FAMOTIDINE (10MG/ML) 2ML VL IV SCH ×2 (09:22→22:11)
[2020-08-31] MEDS: ARTIFICIAL SALIVA MT SCH (09:22)
[2020-08-31] MEDS: FUROSEMIDE 20 MG/2 ML VIAL IV SCH (09:23)
[2020-08-31] MEDS: BUDESONIDE (INHALATION) 180 MCG IH IN SCH ×2 (09:51→22:00)
[2020-08-31] MEDS: ALBUTEROL SULF HFA 90MCG INH 200DOSE IN PRN (09:51)
[2020-08-31 16:00] VITALS: BP 111/58
[2020-08-31 20:00] VITALS: BP 128/64
[2020-08-31 22:00] VITALS: BP 127/77
[2020-08-31] MEDS: traZODone HCL 50 MG TAB PO SCH (22:11)
[2020-09-01] MEDS: ACCU-CHEK COMFORT CURVE STRIP VI SCH ×7 (06:26→22:00)
[2020-09-01] MEDS: InsuLIN REG 1unit/0.01ml Soln (100units/ml) SC SCH ×4 (06:26→22:00)
[2020-09-01 08:00] VITALS: BP 137/70
[2020-09-01] MEDS: ARTIFICIAL SALIVA MT SCH (10:00)
[2020-09-01] MEDS: FAMOTIDINE (10MG/ML) 2ML VL IV SCH ×2 (10:43→22:00)
[2020-09-01] MEDS: DexAMETHasone SOD PHOS 10MG/1ML VIAL INJ IV SCH (10:43)
[2020-09-01] MEDS: ENOXAPARIN SOD 40 MG/0.4 ML SYRINGE SC SCH ×2 (10:43→22:33)
[2020-09-01] MEDS: CITALOPRAM HYDROBR 20 MG TAB PO SCH (10:44)
[2020-09-01] MEDS: ASCORBIC ACID 1,000 MG TAB PO SCH (10:45)
[2020-09-01] MEDS: TAMSULOSIN HYDROCHLORIDE 0.4 MG CAP PO SCH (10:45)
[2020-09-01] MEDS: FUROSEMIDE 20 MG/2 ML VIAL IV SCH (10:46)
[2020-09-01] MEDS: ZINC SULFATE 220mg CAP or TAB PO SCH (10:46)
[2020-09-01] MEDS: BUDESONIDE (INHALATION) 180 MCG IH IN SCH ×3 (10:48→22:00)
[2020-09-01] MEDS: METOPROLOL SUCCINATE XL 50 MG TAB PO SCH (10:50)
[2020-09-01] MEDS: CHOLECALCIFEROL (VITD3) 2,000 UNIT CAP PO SCH (11:02)
[2020-09-01 16:00] VITALS: BP 122/67
[2020-09-01 20:00] VITALS: BP 101/61
[2020-09-01 22:00] VITALS: BP 101/61
[2020-09-01] MEDS: traZODone HCL 50 MG TAB PO SCH (22:32)
[2020-09-01] MEDS: traMADol HCL 50 MG TAB PO PRN (22:32)
[2020-09-02] MEDS: InsuLIN REG 1unit/0.01ml Soln (100units/ml) SC SCH ×4 (05:55→22:05)
[2020-09-02] MEDS: ACCU-CHEK COMFORT CURVE STRIP VI SCH ×4 (05:55→21:58)
[2020-09-02 08:00] VITALS: BP 125/65
[2020-09-02] MEDS: ARTIFICIAL SALIVA MT SCH (10:00)
[2020-09-02] MEDS: ASCORBIC ACID 1,000 MG TAB PO SCH (10:00)
[2020-09-02] MEDS: CHOLECALCIFEROL (VITD3) 2,000 UNIT CAP PO SCH (10:00)
[2020-09-02] MEDS: ZINC SULFATE 220mg CAP or TAB PO SCH (10:42)
[2020-09-02] MEDS: METOPROLOL SUCCINATE XL 50 MG TAB PO SCH (10:43)
[2020-09-02] MEDS: FUROSEMIDE 20 MG/2 ML VIAL IV SCH (10:45)
[2020-09-02] MEDS: DexAMETHasone SOD PHOS 10MG/1ML VIAL INJ IV SCH (10:45)
[2020-09-02] MEDS: TAMSULOSIN HYDROCHLORIDE 0.4 MG CAP PO SCH (10:46)
[2020-09-02] MEDS: CITALOPRAM HYDROBR 20 MG TAB PO SCH (10:48)
[2020-09-02] MEDS: ENOXAPARIN SOD 40 MG/0.4 ML SYRINGE SC SCH ×2 (10:48→21:58)
[2020-09-02] MEDS: BUDESONIDE (INHALATION) 180 MCG IH IN SCH (10:49)
[2020-09-02 16:16] VITALS: BP 112/54
[2020-09-02] MEDS: traZODone HCL 50 MG TAB PO SCH (21:58)
[2020-09-03 00:24] VITALS: BP 102/94
[2020-09-03] MEDS: ACCU-CHEK COMFORT CURVE STRIP VI SCH ×4 (06:10→21:21)
[2020-09-03] MEDS: InsuLIN REG 1unit/0.01ml Soln (100units/ml) SC SCH ×4 (06:11→21:21)
[2020-09-03 08:00] VITALS: BP 119/64
[2020-09-03 08:10] VITALS: BP 125/65
[2020-09-03] MEDS: ENOXAPARIN SOD 40 MG/0.4 ML SYRINGE SC SCH ×2 (10:56→21:21)
[2020-09-03] MEDS: BUDESONIDE (INHALATION) 180 MCG IH IN SCH ×2 (10:56→19:26)
[2020-09-03] MEDS: DexAMETHasone SOD PHOS 10MG/1ML VIAL INJ IV SCH (10:57)
[2020-09-03] MEDS: FUROSEMIDE 20 MG/2 ML VIAL IV SCH (10:57)
[2020-09-03] MEDS: CITALOPRAM HYDROBR 20 MG TAB PO SCH (10:58)
[2020-09-03] MEDS: METOPROLOL SUCCINATE XL 50 MG TAB PO SCH (10:58)
[2020-09-03] MEDS: ARTIFICIAL SALIVA MT SCH (10:59)
[2020-09-03] MEDS: ZINC SULFATE 220mg CAP or TAB PO SCH (10:59)
[2020-09-03] MEDS: TAMSULOSIN HYDROCHLORIDE 0.4 MG CAP PO SCH (10:59)
[2020-09-03] MEDS: ASCORBIC ACID 1,000 MG TAB PO SCH (11:00)
[2020-09-03] MEDS: CHOLECALCIFEROL (VITD3) 2,000 UNIT CAP PO SCH (11:00)
[2020-09-03 16:00] VITALS: BP 145/79
[2020-09-03] MEDS: ALBUTEROL SULF HFA 90MCG INH 200DOSE IN PRN (19:26)
[2020-09-03] MEDS: traZODone HCL 50 MG TAB PO SCH (21:21)
[2020-09-04] VITALS: BP 121/70
[2020-09-04] MEDS: ACCU-CHEK COMFORT CURVE STRIP VI SCH ×3 (05:57→17:00)
[2020-09-04] MEDS: InsuLIN REG 1unit/0.01ml Soln (100units/ml) SC SCH ×3 (05:57→17:00)
[2020-09-04 08:00] VITALS: BP 118/61
[2020-09-04] MEDS: FUROSEMIDE 20 MG/2 ML VIAL IV SCH (10:00)
[2020-09-04] MEDS: ARTIFICIAL SALIVA MT SCH (10:00)
[2020-09-04] MEDS: BUDESONIDE (INHALATION) 180 MCG IH IN SCH (11:04)
[2020-09-04] MEDS: DexAMETHasone SOD PHOS 10MG/1ML VIAL INJ IV SCH (11:04)
[2020-09-04] MEDS: ZINC SULFATE 220mg CAP or TAB PO SCH (11:05)
[2020-09-04] MEDS: CITALOPRAM HYDROBR 20 MG TAB PO SCH (11:05)
[2020-09-04] MEDS: TAMSULOSIN HYDROCHLORIDE 0.4 MG CAP PO SCH (11:05)
[2020-09-04] MEDS: METOPROLOL SUCCINATE XL 50 MG TAB PO SCH (11:06)
[2020-09-04] MEDS: ENOXAPARIN SOD 40 MG/0.4 ML SYRINGE SC SCH (11:07)
[2020-09-04] MEDS: ASCORBIC ACID 1,000 MG TAB PO SCH (11:07)
[2020-09-04] MEDS: CHOLECALCIFEROL (VITD3) 2,000 UNIT CAP PO SCH (11:07)
[2020-09-04 16:00] VITALS: BP 125/69
[2020-09-04 16:07] VITALS: BP 118/60
== END 2020-09-04 18:10 | disposition home or self-care (01) | DRG 871 ==
LOC: ER 02:58 → TELE 02:59 → TELE-CENTR 21:33 → TELE-WESTW 08-21 18:17
PROVIDERS: ADMIT Internal Medicine; ATTEND Internal Medicine
PROC: XW033E5 Introduction of Remdesivir Anti-infective into Peripheral Vein, Percutaneous Approach, New Technology Group 5 (ICD-10-PCS; 2020-08-18)
PROC: XW13325 Transfusion of Convalescent Plasma (Nonautologous) into Peripheral Vein, Percutaneous Approach, New Technology Group 5 (ICD-10-PCS; principal; 2020-08-19)
DX: A41.89 Other specified sepsis (principal); U07.1 COVID-19; J12.89 Other viral pneumonia; J96.01 Acute respiratory failure with hypoxia; E87.1 Hypo-osmolality and hyponatremia; D69.6 Thrombocytopenia, unspecified; E87.6 Hypokalemia; R73.9 Hyperglycemia, unspecified; I10 Essential (primary) hypertension; K27.9 Peptic ulcer, site unspecified, unspecified as acute or chronic, without hemorrhage or perforation; R73.03 Prediabetes; I70.90 Unspecified atherosclerosis; Z87.11 Personal history of peptic ulcer disease; Z99.81 Dependence on supplemental oxygen; I51.7 Cardiomegaly
CPT/HCPCS: 36415; 36600; 71045; 80053; 81001; 82728; 82805; 82962; 83036; 83615; 83735; 83880; 84100; 84484; 85025; 85379; 85610; 85730; 86141; 86850; 86900; 86901; 87426; 93005; 94640; 97110; 97116; 97530; G0378; J1100; J1815; J1956; J2405; J3490